=== PATIENT | female | born 1955 | race Two or more races ===

== ENCOUNTER 2020-05-04 06:40 | Day surgery (SDC) | payer OTHER ==
[~2020-05-04 06:40] MED LIST: DIOVAN40 MG; SYNTHROID50 MCG
== END 2020-05-04 21:04 | disposition home or self-care (01) ==
LOC: CIR.AMB 06:40
PROVIDERS: ATTEND Obstetrics & Gynecology
DX: N84.0 Polyp of corpus uteri (principal); Z20.828 Contact with and (suspected) exposure to other viral communicable diseases